=== PATIENT | male | born 1995 | race African-American/Black ===

== ENCOUNTER 2019-10-11 00:52 | Emergency (ER) | payer OTHER ==
[~2019-10-11] VITALS: Ht 182.9 cm; Wt 70.3 kg
[2019-10-11 01:52] LABS: URINE BLOOD NEGATIVE (Negative); URINE CLARITY CLEAR; URINE COLOR DARK YELLOW; URINE GLUCOSE-RANDOM NEGATIVE (Negative); URINE KETONES TRACE (Negative); URINE LEUKOCYTES-REFLEX NEGATIVE (Negative); URINE NITRITE-REFLEX NEGATIVE (Negative); URINE PROTEIN 2+ (Negative); URINE SPECIFIC GRAVITY >= 1.030 (1.005-1.030); URINE UROBILINOGEN 0.2 E.U./dl (0.2-1.0)
[2019-10-11 01:55] LABS: ICTOTEST (BILI CONFIRMATORY) Positive (Negative); URINE BILIRUBIN 2+ (Negative)
[2019-10-11 02:05] LABS: AMP/METHAMP Negative (Negative); BARBITURATES Negative (Negative); BENZODIAZEPINES Negative (Negative); COCAINE Negative (Negative); METHADONE Negative (Negative); OPIATES Negative (Negative); PCP Negative (Negative); THC POSITIVE (Negative)
[2019-10-11 02:16] LABS: ABSOLUTE LYMPHOCYTES 1.1 thou/uL (0.8-5.3); ABSOLUTE MONOCYTES 0.6 thou/uL (0.0-1.2); ABSOLUTE NEUTROPHILS 5.2 thou/uL (1.6-8.1); BASOPHILS 0.6 %; EOSINOPHILS 0.1 %; HEMATOCRIT 40.2 % (42.0-52.0); LYMPHOCYTES 15.4 %; MCHC 34.9 g/dL (28.0-37.0); MCV 83.2 fL (80.0-100.0); MONOCYTES 8.5 %; MPV 8.3 fl. (7.2-11.1); NUCLEATED RBCS 0 /100WBC; PLATELET COUNT* 203 thou/uL (150-400); POLYS 75.4 %; RBC 4.84 mil/uL (4.50-6.00); RDW-CV 12.6 % (10.5-14.5)
[2019-10-11 02:41] LABS: CALCIUM 8.3 mg/dL (8.5-10.1); CREATININE 1.7 mg/dL (0.6-1.3)
[2019-10-11 02:42] LABS: ALBUMIN 3.9 g/dL (3.4-5.0); TOTAL BILIRUBIN 0.8 mg/dL (<0.1-1.0)
[2019-10-11 02:50] LABS: POTASSIUM 2.9 mmol/L (3.5-5.1)
[2019-10-11 03:00] LABS: HYALINE CASTS 4-10 Moderate /LPF (None Seen); MUCUS >6 Heavy strn/LPF (None Seen); SQUAMOUS 4-10 Moderate /LPF (0-3)
[2019-10-11 03:01] LABS: CALCIUM OXALATE 4-10 Moderate /LPF (None Seen); URINE RBC None Seen /HPF (0-2); URINE WBC-REFLEX 6-15 Few /HPF (0-5)
[2019-10-11 03:12] LABS: SALICYLATE < 2.8 mg/dL (2.8-20.0)
[2019-10-11 03:14] LABS: ACETAMINOPHEN < 2 ug/mL (10-30); ALCOHOL < 0 mg/dL (<10)
[2019-10-11 14:37] VITALS: BP 123/75
== END 2019-10-11 14:40 ==
LOC: M.ERS 00:52
PROVIDERS: Emergency Medicine Emergency Medical Services
DX: F23 Brief psychotic disorder (principal)